=== PATIENT | female | born 1995 | race Caucasian/White ===

== ENCOUNTER 2019-08-03 01:50 | Emergency (ER) | payer MEDICAID, OTHER ==
[~2019-08-03] VITALS: Ht 154.9 cm; Wt 80.0 kg
[~2019-08-03 01:50] MED LIST: OXYC-302 PO
[2019-08-03] MEDS ORDERED: HYDROcodone/APAP 5/325 TABLET ONE (02:42)
[2019-08-03] MEDS ORDERED: HYDROcodone/APAP 5/325 TABLET PO ONE (03:00)
[2019-08-03] MEDS ORDERED: HYDROmorphone 1 MG/ML, 1ML INJ ONE (03:47)
[2019-08-03 03:48] VITALS: BP 107/55
[2019-08-03] MEDS ORDERED: HYDROmorphone 1 MG/ML, 1ML INJ IM ONE (04:00)
== END 2019-08-03 04:56 | disposition home or self-care (01) ==
LOC: ED 04:15
DX: S93.402A Sprain of unspecified ligament of left ankle, initial encounter (principal); X50.1XXA Overexertion from prolonged static or awkward postures, initial encounter; Y93.89 Activity, other specified; Y92.488 Other paved roadways as the place of occurrence of the external cause; Y99.8 Other external cause status
CPT/HCPCS: 29515; 73610; 96372; 99283; J1170

== ENCOUNTER 2020-07-25 11:47 | Emergency (ER) | payer MEDICAID ==
[~2020-07-25] VITALS: Ht 154.9 cm; Wt 70.3 kg
[~2020-07-25 11:47] MED LIST changes: -OXYC-302 PO; +OXYC1TAB14 PO
[2020-07-25 12:47] LABS: BASOPHILS % (AUTO) 0 % (0-1); EOSINOPHILS % (AUTO) 1 % (1-7); LYMPHOCYTES % (AUTO) 19 % (22-44); MEAN CORPUSCULAR HEMOGLOBIN 32.6 pg (27.0-34.8); MEAN CORPUSCULAR HGB CONC 34.9 g/dL (32.4-35.8); MEAN PLATELET VOLUME 7.9 fL (7.4-10.4); MONOCYTES % (AUTO) 8 % (2-9); NEUTROPHILS % (AUTO) 71 % (42-75); PLATELET COUNT 243 x10^3/uL (130-400); RED BLOOD COUNT 4.52 x10^6/uL (3.82-5.3)
[2020-07-25 12:53] LABS: MD NO
[2020-07-25 12:54] LABS: ALANINE AMINOTRANSFERASE 20 U/L (12-78); ALBUMIN 4.2 g/dL (3.4-5.0); ANION GAP 5 mmol/L (5-15); CALCIUM 8.7 mg/dL (8.5-10.1); CHLORIDE 111 mmol/L (98-107); CREATININE 0.73 mg/dL (0.55-1.02)
[2020-07-25 13:00] LABS: ALKALINE PHOSPHATASE 61 U/L (45-117); BILIRUBIN,TOTAL 0.3 mg/dL (0.2-1.0); TOTAL PROTEIN 7.3 g/dL (6.4-8.2)
--- NOTE | 2020-07-25 13:42 | NUR ---
PT TO ROOM FROM LOBBY
--- NOTE | 2020-07-25 14:03 | NUR ---
BREAK RN: LULY BOURGEOIS AT BEDSIDE TO VANIA ORTIZ
--- NOTE | 2020-07-25 14:12 | NUR ---
REPORT TO KATERIN CARTY AND MIN CARTY
--- NOTE | 2020-07-25 14:19 | NUR ---
REPORT RECEIVED FROM BREAK RN SHANTI, PT SPEAKING WITH NARESH MAURICIO AT THIS TIME. PT A&O, RESPS EVEN AND UNLABORED. JOSE.
--- NOTE | 2020-07-25 14:28 | NUR ---
PT PRESENTS TO ED WITH C/O INTERMITTENT DIZZINESS, HEADACHE FOR SEVERAL DAYS, PT THREW UP A FEW DAYS AGO BUT SINCE THAT TIME HAS NOT HAD ANY N/D OR DIARRHEA. PT A&O, RESPS EVEN AND UNLABORED, SPEECH CLEAR, NEURO INTACT. PT SEEN AND EXAMINED BY EDPA LULY, PER EDPA, PT DOES NOT REQUIRE AUTOMOTIVE METALSMITH. AWAITING DC PAPERWORK AT THIS TIME.
[2020-07-25 14:33] VITALS: BP 101/51
--- NOTE | 2020-07-25 14:47 | NUR ---
PT GIVEN DC INSTRUCTIONS AND SCRIPT, EDUCATED REGARDING RX FOR ATARAX. PT A&O, RESPS EVEN AND UNLABORED, AGREEABLE TO DC AND POC. PT AMBULATORY TO DC DESK WITH STEADY GAIT, ALL QUESTIONS ANSWERED.
== END 2020-07-25 14:48 | disposition home or self-care (01) ==
LOC: ED 12:28
DX: R55 Syncope and collapse (principal); F10.10 Alcohol abuse, uncomplicated; F12.10 Cannabis abuse, uncomplicated; R42 Dizziness and giddiness; R07.89 Other chest pain; Y90.0 Blood alcohol level of less than 20 mg/100 ml
CPT/HCPCS: 36415; 71045; 80053; 84703; 85025; 93005; 99285